=== PATIENT | male | born 1955 | race American Indian/Alaskan Native ===

== ENCOUNTER 2020-10-07 05:53 | Day surgery (SDC) | payer MEDICARE ==
[2020-10-07] MEDS ORDERED: BACTERIOSTATIC SODIUM CHLORIDE 0.9% 30 ML VIAL INFILTRATI ONE (06:18)
[2020-10-07] MEDS ORDERED: fentaNYL 100 MCG/2 ML INJ ONE (06:37)
[2020-10-07] MEDS ORDERED: propofoL 200 MG/20 ML VIAL IV ONE (06:37)
[2020-10-07] MEDS ORDERED: ONDANSETRON 4 MG/2 ML INJ ONE (06:37)
[2020-10-07] MEDS ORDERED: LIDOCAINE MPF (2%) 20 MG/1 ML VIAL 5 ML ONE (06:37)
[2020-10-07] MEDS ORDERED: HYDROmorphone 1 MG/1 ML INJ IV PRN ×2 (07:11)
[2020-10-07] MEDS ORDERED: ONDANSETRON 4 MG/2 ML INJ IV PRN (07:11)
[2020-10-07] MEDS ORDERED: WATER FOR IRRIG STERILE 1,500 ML BOTTLE IR ONE (07:12)
--- NOTE | 2020-10-07 07:12 | Anesthesia Day of Surgery ---
Anesthesia Day of Surgery - Day of Surgery Patient Examined: Yes Patient H&P Reviewed: Yes Patient is NPO: Yes
[2020-10-07] MEDS ORDERED: ceFAZolin/STERILE WATER 2 GM/20 ML SYRINGE IV NR (07:13)
[2020-10-07] MEDS ORDERED: WATER FOR IRRIG STERILE 2000 ML IR ONE (07:13)
--- NOTE | 2020-10-07 07:18 | Anesthesia Consultation ---
Anesthesia Consult and Med Hx Date of service: 10/07/20 - Airway Anesthetic Teeth Evaluation: Good ROM Head & Neck: Adequate Mental/Hyoid Distance: Adequate Mallampati Class: Class II Intubation Access Assessment: Good - Pulmonary Exam CTA: Yes - Cardiac Exam Cardiac Exam: RRR - Pre-Operative Health Status ASA Pre-Surgery Classification: ASA2 Proposed Anesthetic Plan: General - Pulmonary Hx Smoking: No Hx Asthma: No COPD: No Hx Pneumonia: No Hx Sleep Apnea: No (GENA PRE SCREEN HIGH RISK) - Cardiovascular System Hx Hypertension: Yes Hx Heart Attack/AMI: No Hx Heart Murmur: No - Central Nervous System Hx Seizures: No CVA: No Hx Back Pain: No Hx Psychiatric Problems: No - Gastrointestinal Hx Gastroesophageal Reflux Disease: No - Endocrine Hx Renal Disease: No Hx End Stage Renal Disease: No Hx Cirrhosis: No Hx Liver Disease: No Hx Insulin Dependent Diabetes: No Hx Non-Insulin Dependent Diabetes: No - Hematic Hx Anemia: No Hx Sickle Cell Disease: No - Other Systems Hx Alcohol Use: Yes (2-3 BEERS OR VODKA PER WEEK) Hx Substance Use: No Hx Cancer: Yes - Additional Comments Anesthesia Medical History Comments: hyperlipidemia
[2020-10-07] MEDS ORDERED: dexAMETHasone 20 MG/5 ML VIAL ONE (07:56)
[2020-10-07] MEDS ORDERED: LACTATED RINGERS 1,000 ML IV SCH (08:00)
[2020-10-07] MEDS ORDERED: MIDAZOLAM 2 MG/2 ML INJ IV NR (08:00)
--- NOTE | 2020-10-07 08:18 | Short Stay Summary ---
Short Stay Documentation Date of service: 10/07/20 - History H&P: obtained from office - Allergies and Medications Current Medications: Allergies No Known Allergies Allergy (Verified 10/01/20 13:06) Home Medications Medication Instructions Recorded Confirmed Last Taken Type Cholecalciferol Vit D3 1 cap PO DAILY 09/30/20 09/30/20 10/06/20 History Flonase 1 spray INNOSTRIL PRN PRN 09/30/20 09/30/20 10/07/20 04:30 History Losartan-Hctz 50-12.5 mg Tab 50 mg PO DAILY 09/30/20 09/30/20 10/06/20 History Nifedipine ER 30 mg PO DAILY 09/30/20 09/30/20 10/07/20 04:30 History Simvastatin 20 mg PO DAILY 09/30/20 09/30/20 10/06/20 History Active Medications Cefazolin Sodium (Ancef/Sterile Water 2 Gm/20 Ml) 2 gm IV PREOP NR Stop: 10/07/20 23:59 Hydromorphone HCl (Dilaudid) 0.25 mg IV Q10MIN PRN PRN Reason: Pain, Moderate (4-6) Hydromorphone HCl (Dilaudid) 0.5 mg IV Q10MIN PRN PRN Reason: Pain , Severe (7-10) Lactated Ringer's (Lactated Ringers) 1,000 mls @ 125 mls/hr IV DIRECT GURDEEP Last Admin: 10/07/20 07:30 Dose: 125 mls/hr Documented by: Midazolam HCl (Versed) 2 mg IV PREOP NR Stop: 10/07/20 23:59 Last Admin: 10/07/20 07:30 Dose: 2 mg Documented by: Ondansetron HCl (Zofran) 4 mg IV ONCE PRN PRN Reason: Nausea And Vomiting - Brief post op/procedure progress note Date of procedure: 10/07/20 Pre-op diagnosis: prostate ca, bph Post-op diagnosis: same Procedure: cysto, rpg, pus (30cc)---bx 12 core Anesthesia: GETA Surgeon: EVENS KATZ Estimated blood loss: minimal Pathology: list (prostate cores x 12) Specimen disposition: to lab Condition: stable - Hospital course Hospital course: ahmet on chart - Disposition Condition at discharge: Stable Disposition: DC-01 TO HOME OR SELFCARE Short Stay Discharge Plan Follow up with: TESS SANTIAGO MD [Primary Care Provider] - 7 Days
--- NOTE | 2020-10-07 08:42 | Operative Report ---
PREOPERATIVE DIAGNOSES: Prostate cancer, Rashawn 6 (active surveillance protocol) and BPH. POSTOPERATIVE DIAGNOSES: Prostate cancer, Rashawn 6 (active surveillance protocol) and BPH. PROCEDURE: Cystoscopy, bilateral retrograde pyelograms, transrectal ultrasound, biopsies of the prostate (volume 35 mL). SURGEON: Karan Jolley MD ANESTHESIA: General. ESTIMATED BLOOD LOSS: Minimal. FLUIDS: Crystalloid. COMPLICATIONS: No complications. DESCRIPTION OF PROCEDURE: The patient was taken to the operative suite, placed in a supine position. After adequate general anesthesia, he was prepped and draped in a sterile fashion. Pancystourethroscopy was performed with a 22-Qatari Storz cystoscope. No urethral abnormalities. Prostate did display mild trilobar obstruction. Bilateral retrograde pyelograms were obtained with an 8-Qatari Alessandro catheter and 8 mL of contrast. No filling defects or obstruction. Next, using realtime prostate ultrasound, transverse and sagittal planes were measured total volume of 35 mL. No suspicious lesions could be appreciated. 12-core biopsies were obtained, 4 at the base, mid, and apex of the prostate. Bladder was drained. Rectal exam was benign. The patient was extubated and taken to recovery room in stable condition. He will go home on Bactrim, Mooers and follow up with Dr. Dolan. JOB# [id number] [facility]
[2020-10-07 09:11] VITALS: BP 127/79
--- NOTE | 2020-10-07 09:55 | Ultrasound Report ---
ULTRASOUND TRANSRECTAL HISTORY: Elevated PSA COMPARISON: None. FINDINGS: Transrectal ultrasound guidance was provided by radiology during prostate biopsy by urology . The prostate volume measures 23 cc. IMPRESSION: Successful ultrasound-guided prostate biopsy by urology. Signer Name: Darvin Bautista Jr, MD Signed: 10/07/2020 9:50 AM Workstation Name: [id number]
--- NOTE | 2020-10-07 11:05 | Post Anesthesia Evaluation ---
- Post Anesthesia Evaluation Patient Participated: Yes Airway Patent: Yes Stable Respiratory Function: Yes Nausea/Vomiting: No Temp > 96.8F: Yes Pain Manageable: Yes Adequeate Hydration: Yes Anesthesia Complications: No Block Receding Appropriately: Not Applicable Patient on Ventilator: No
--- NOTE | 2020-10-07 13:15 | Fluoroscopy Report ---
FLUOROSCOPY RETROGRADE UROGRAPHY HISTORY: Elevated PSA with BPH FINDINGS: Fluoroscopy was provided by radiology during retrograde urography by the urologist. There i s normal filling of both renal collecting systems. No filling defect or abnormal dilatation is identi fied. IMPRESSION: Unremarkable bilateral retrograde pyelograms Fluoroscopy time: 10 seconds Fluoroscopic images: 8 Signer Name: Darvin Bautista Jr, MD Signed: 10/07/2020 1:10 PM Workstation Name: [id number]
== END 2020-10-07 05:54 | disposition home or self-care (01) ==
LOC: OR 05:53
PROVIDERS: ATTEND Urology
DX: C61 Malignant neoplasm of prostate (principal); N40.0 Benign prostatic hyperplasia without lower urinary tract symptoms; E78.00 Pure hypercholesterolemia, unspecified; I10 Essential (primary) hypertension; Z72.89 Other problems related to lifestyle; Z79.899 Other long term (current) drug therapy; Z98.890 Other specified postprocedural states
CPT/HCPCS: 36415; 52005; 55700; 74420; 76872; 84132; 88305; A4217; C1758; J0690; J1100; J2250; J2405; J2704; J3010; J7120; Q9967